=== PATIENT | male | born 1990 | race Caucasian/White ===

== ENCOUNTER 2016-06-06 10:43 | Emergency (ER) | payer SELFPAY ==
[~2016-06-06] VITALS: Ht 170.2 cm; Wt 81.8 kg
[~2016-06-06 10:43] MED LIST: DICY1TAB26 PO; XANA2TAB2 PO; ZOFR4TAB3 SL
[2016-06-06 10:45] VITALS: BP 116/77; PULSE 66; RESP 20; TEMP 98.4; O2SAT 97
--- NOTE | 2016-06-06 11:01 | PD ---
HPI Chief Complaint: Neuro Symptoms/ Deficits Time Seen by Provider: 11:01 Travel History International Travel<30 days: No Contact w/Intl Traveler<30days: No Traveled to known affect area: No History of Present Illness HPI 25-year-old male with history of anxiety presents to the ED for evaluation of 3 day history of left neck and shoulder pain, left arm weakness. Patient states he woke 3 days ago with symptoms. He denies known injury to the area. He endorses posterior headache, improved with OTC analgesics. He states that he had left-sided facial droop on day 1, lasting "1/2 of the day." He endorses tingling of the left arm and weakness of the left hand. He denies dizziness, fevers, chills, abdominal pain, nausea or vomiting. [facility] [place] and was prescribed Percocet. A friend is at bedside and states that just before arrival the patient had a sharp episode of pain that lasted 2-3 seconds followed by a period of confusion. Patient endorses similar symptoms in the past related to anxiety. He states that he was prescribed 2 mg Xanax BID but has been off of this for 6 months. 5 pack year history, current smoker. He does not have a primary care provider. [facility] Past Medical History Anxiety: Yes Diminished Hearing: No Past Surgical History Oral Surgery: Yes (WISDOM TEETH REMOVED) Social History Alcohol Use: No Tobacco Use: Yes (1/2 PPD) Substance Use: No Allergies-Medications (Allergen,Severity, Reaction): Coded Allergies: No Known Allergies (Verified , 06/06/16) Reported Meds & Prescriptions Reported Meds & Active Scripts Active Flexeril (Cyclobenzaprine HCl) 10 Mg Tab 10 Mg PO TID Ibuprofen 800 Mg Tab 800 Mg PO Q8H PRN Zofran ODT (Ondansetron HCl) 4 Mg Tab 4 Mg SL QID PRN FOR NAUSEA/VOMITING Bentyl (Dicyclomine HCl) 20 Mg Tab 20 Mg PO Q6H PRN FOR CRAMPS Zofran ODT (Ondansetron HCl) 4 Mg Tab 4 Mg SL Q6H PRN FOR NAUSEA/VOMITING Reported Alprazolam 2 Mg Tab 2 Mg PO BID Review of Systems Except as stated in HPI: all other systems reviewed are Neg Physical Exam Narrative GENERAL: Well-nourished, well-developed white male in no acute distress. SKIN: Focused skin assessment warm/dry. Multiple tattoos. HEAD: Normocephalic. Atraumatic. EYES: No scleral icterus. No injection or drainage. PERRLA. EOMI. NECK: Supple, trachea midline. No JVD or lymphadenopathy. No midline tenderness to palpation. Patient retains full, active, painless range of motion of the neck. CARDIOVASCULAR: Regular rate and rhythm without murmurs, gallops, or rubs. 2+ DP and radial pulses bilaterally. RESPIRATORY: Breath sounds clear and equal bilaterally. No accessory muscle use. GASTROINTESTINAL: Abdomen soft, non-tender, nondistended. Active bowel sounds. MUSCULOSKELETAL: No cyanosis, or edema. Patient is ambulatory, moves extremities spontaneously. No tenderness to palpation of the left shoulder or humerus. NEUROLOGICAL: Awake, arouses easily to voice. Oriented 4. Cranial nerves II through XII intact. Motor and sensory grossly within normal limits. 5/5 muscle strength in all muscle groups. Normal speech. No pronator drift. No difficulties with finger to nose or heel to lock testing. BACK: Nontender without obvious deformity. No CVA tenderness. Data Data Last Documented VS Vital Signs Date Time Temp Pulse Resp B/P Pulse Ox O2 Delivery O2 Flow Rate FiO2 06/06/16 14:18 63 16 121/61 98 06/06/16 10:[address] Brain W/O Iv Contrast(Rout) (06/06/16 11:19) Ct Cerv Spine W/O Contrast (06/06/16 11:19) Complete Blood Count With Diff (06/06/16 11:20) Comprehensive Metabolic Panel (06/06/16 11:20) Ecg Monitoring (06/06/16 11:20) Iv Access Insert/Monitor (06/06/16 11:20) Oximetry (06/06/16 11:20) Sodium Chlor 0.9% 1000 Ml Inj (Ns 1000 M (06/06/16 11:20) Labs Laboratory Tests Test 06/06/16 11:33 White Blood Count 7.2 TH/MM3 Red Blood Count 4.55 MIL/MM3 Hemoglobin 14.2 GM/DL Hematocrit 40.2 % Mean Corpuscular Volume 88.4 FL Mean Corpuscular Hemoglobin 31.3 PG Mean Corpuscular Hemoglobin 35.4 % Concent Red Cell Distribution Width 13.8 % Platelet Count 251 TH/MM3 Mean Platelet Volume 8.0 FL Neutrophils (%) (Auto) 46.2 % Lymphocytes (%) (Auto) 39.9 % Monocytes (%) (Auto) 7.0 % Eosinophils (%) (Auto) 6.3 % Basophils (%) (Auto) 0.6 % Neutrophils # (Auto) 3.3 TH/MM3 Lymphocytes # (Auto) 2.9 TH/MM3 Monocytes # (Auto) 0.5 TH/MM3 Eosinophils # (Auto) 0.5 TH/MM3 Basophils # (Auto) 0.0 TH/MM3 CBC Comment DIFF FINAL Differential Comment Sodium Level 139 MEQ/L Potassium Level 4.3 MEQ/L Chloride Level 104 MEQ/L Carbon Dioxide Level 29.2 MEQ/L Anion Gap 6 MEQ/L Blood Urea Nitrogen 15 MG/DL Creatinine 0.91 MG/DL Estimat Glomerular Filtration 100 ML/MIN Rate Random Glucose 106 MG/DL Calcium Level 9.1 MG/DL Total Bilirubin 0.5 MG/DL Aspartate Amino Transf 22 U/L (AST/SGOT) Alanine Aminotransferase 25 U/L (ALT/SGPT) Alkaline Phosphatase 56 U/L Total Protein 7.2 GM/DL Albumin 4.0 GM/DL [facility] Medical Decision Making Medical Screen Exam Complete: Yes Emergency Medical Condition: Yes Differential Diagnosis Pseudoseizure versus neuropathy versus electrolyte abnormality versus muscle spasm versus musculoskeletal pain versus impingement syndrome versus anxiety versus less likely ICH versus other Narrative Course 25-year-old male with PMH of anxiety presents to the ED for evaluation of 3 day history of left neck and shoulder pain, left arm weakness. Onset upon awakening 3 days ago. He denies known injury to the area. He endorses posterior headache, improved with OTC analgesics. He endorses tingling of the left arm and weakness of the left hand. He denies dizziness, fevers, chills, abdominal pain, nausea or vomiting. [facility] [place] [facility] and was prescribed Percocet. A friend is at bedside and states that just before arrival the patient had a sharp episode of pain that lasted 2-3 seconds followed by a period of confusion. Patient endorses similar symptoms in the past related to anxiety. He states that he was prescribed 2 mg Xanax BID but has been off of this for 6 months. He does not have a primary care provider. Vitals reviewed. Physical exam reveals a nontoxic-appearing white male in no acute distress. No focal neurologic deficits. No TTP or limitations to ROM of the left shoulder. IV was established. Patient was placed on continuous monitoring. He was administered 1 L normal saline bolus. CBC: No leukocytosis or anemia. CMP: Unremarkable. CT head: No acute disease per radiology read. CT neck: Normal per radiology read. I doubt neurological source for the patients symptoms. Suspect muscle spasm or pseudoseizure. Discussed the patient with Dr. Robbins. We'll prescribe a course of muscle relaxants and antiinflammatories. Patient is instructed to take meds as prescribed, return to normal, gentle activity as tolerated, follow up with the primary care provider. Patient requested prescription for Xanax, which I refused. He indicated understanding of the instructions and is agreeable to the care plan. He is stable and discharged home. Diagnosis Primary Impression: Left shoulder pain Qualified Code: M25.512 - Acute pain of left shoulder Additional Impression: Left arm weakness Referrals: Primary Care Physician Patient Instructions: General Instructions, Weakness (ED) Additional Instructions: Rest, hydrate. Return to normal, gentle activity as tolerated. Take medications as prescribed. Follow-up with the primary care provider. Return to the ED for any urgent or emergent medical condition. Med/Other Pt SpecificInfo: Prescription(s) given Scripts Cyclobenzaprine (Flexeril)10 Mg Tab10 Mg PO TID #12 TAB Ref 0 Prov:Nissa Robbins MD 06/06/16 Ibuprofen 800 Mg [id number] Mg PO Q8H PRN (Pain/Inflammation) #15 TAB Ref 0 Prov:Nissa Robbins MD 06/06/16 Disposition: 01 DISCHARGE HOME Condition: Stable Darling Whittington Jun 06, 2016 11:01 Darling Whittington Jun 06, 2016 11:01
[2016-06-06] MEDS ORDERED: SODIUM CHLOR 0.9% 1000 ML INJ 1,000 ML IV ONE (11:20)
[2016-06-06 11:48] VITALS: O2SAT 97
[2016-06-06 11:52] LABS: AUTOMATED NEUTROPHIL # 3.3 TH/MM3 (1.8-7.7); BASOPHIL % 0.6 % (0.0-2.0); EOSINOPHIL # 0.5 TH/MM3 (0-0.4); EOSINOPHIL % 6.3 % (0.0-4.0); HEMATOCRIT 40.2 % (39.0-51.0); HEMO FLAGS DIFF FINAL; LYMPH % 39.9 % (9.0-44.0); LYMPHOCYTE # 2.9 TH/MM3 (1.0-4.8); MEAN CELL VOLUME 88.4 FL (80.0-100.0); MEAN CORPUSCULAR HEMOGLOBIN 31.3 PG (27.0-34.0); MEAN CORPUSCULAR HGB CONC 35.4 % (32.0-36.0); NEUT % 46.2 % (16.0-70.0); PLATELET COUNT 251 TH/MM3 (150-450); RED BLOOD COUNT 4.55 MIL/MM3 (4.50-5.90); RED CELL DISTRIBUTION WIDTH 13.8 % (11.6-17.2); WHITE BLOOD COUNT 7.2 TH/MM3 (4.0-11.0)
[2016-06-06 12:20] LABS: ALT (GPT) 25 U/L (12-78); ANION GAP 6 MEQ/L (5-15); AST (GOT) 22 U/L (15-37); BICARBONATE 29.2 MEQ/L (21.0-32.0); BLOOD UREA NITROGEN 15 MG/DL (7-18); CHLORIDE 104 MEQ/L (98-107); GLOMERULAR FILTRATION RATE 100 ML/MIN (>89); POTASSIUM 4.3 MEQ/L (3.5-5.1); SODIUM (NA) 139 MEQ/L (136-145)
[2016-06-06 12:23] LABS: ALKALINE PHOSPHATASE 56 U/L (45-117); TOTAL BILIRUBIN ADULT 0.5 MG/DL (0.2-1.0)
--- NOTE | 2016-06-06 12:55 | RADRPT ---
EXAM DATE/TIME: 06/06/2016 11:33 [facility] COMPARISON: No previous studies available for comparison. INDICATIONS : Altered mental status. RADIATION DOSE: 56.35 CTDIvol (mGy) MEDICAL HISTORY : None SURGICAL HISTORY : None. ENCOUNTER: Initial ACUITY: 1 day PAIN SCALE: 0/10 LOCATION: cranial TECHNIQUE: Multiple contiguous axial images were obtained of the head. Using automated exposure control and adj ustment of the mA and/or kV according to patient size, radiation dose was kept as low as reasonably a chievable to obtain optimal diagnostic quality images. FINDINGS: CEREBRUM: The ventricles are normal for age. No evidence of midline shift, mass lesion, hemorrhage or acute in farction. No extra-axial fluid collections are seen. POSTERIOR FOSSA: The cerebellum and brainstem are intact. The 4th ventricle is midline. The cerebellopontine angle i s unremarkable. EXTRACRANIAL: The visualized portion of the orbits is intact. SKULL: The calvaria is intact. No evidence of skull fracture. CONCLUSION: No acute disease. Jonathan Naranjo MD on June 06, 2016 at 12:53 Board Certified Radiologist. This report was verified electronically.
--- NOTE | 2016-06-06 13:10 | RADRPT ---
EXAM DATE/TIME: 06/06/2016 11:33 [facility] COMPARISON: No previous studies available for comparison. INDICATIONS : Left arm weakness. RADIATION DOSE: 31.77 CTDIvol (mGy) MEDICAL HISTORY : None SURGICAL HISTORY : None. ENCOUNTER: Initial ACUITY: 1 day PAIN SCALE: 0/10 LOCATION: Bilateral neck TECHNIQUE: Volumetric scanning of the cervical spine was performed. Multiplanar reconstructions in the sagittal, coronal and oblique axial planes were performed. Using automated exposure control and adjustment o f the mA and/or kV according to patient size, radiation dose was kept as low as reasonably achievable to obtain optimal diagnostic quality images. FINDINGS: VERTEBRAE: Normal vertebral body height. ALIGNMENT: No evidence of subluxation. C2-C3: The bony spinal canal is normal in size. No evidence of disc bulge or herniation. The neural forami na are bilaterally patent. C3-C4: The bony spinal canal is normal in size. No evidence of disc bulge or herniation. The neural forami na are bilaterally patent. C4-C5: The bony spinal canal is normal in size. No evidence of disc bulge or herniation. The neural forami na are bilaterally patent. C5-C6: The bony spinal canal is normal in size. No evidence of disc bulge or herniation. The neural forami na are bilaterally patent. C6-C7: The bony spinal canal is normal in size. No evidence of disc bulge or herniation. The neural forami na are bilaterally patent. C7-T1: The bony spinal canal is normal in size. No evidence of disc bulge or herniation. The neural forami na are bilaterally patent. CONCLUSION: Normal examination. Jonathan Naranjo MD on June 06, 2016 at 13:06 Board Certified Radiologist. This report was verified electronically.
[2016-06-06] MEDS ORDERED: IBUP800T23 PO (13:21)
[2016-06-06] MEDS ORDERED: CYCL1TAB29 PO (13:21)
[2016-06-06 14:18] VITALS: BP 121/61; PULSE 63; RESP 16; O2SAT 98
== END 2016-06-06 14:56 | disposition home or self-care (01) ==
LOC: NEPC 10:43
DX: M25.512 Pain in left shoulder (principal); R53.1 Weakness; R51 Headache; F17.210 Nicotine dependence, cigarettes, uncomplicated
CPT/HCPCS: 70450; 72125; 80053; 85025; 96360; 96361; 99285; J7030